=== PATIENT | male | born 1965 | race Caucasian/White ===

== ENCOUNTER 2024-06-11 09:48 | Outpatient (CLI) | payer OTHER | END 2024-06-11 23:59 | disposition critical access hospital (66) | LOC: EMS 09:48 | DX: R07.9 Chest pain, unspecified (principal) | CPT/HCPCS: A0425; A0427 ==

== ENCOUNTER 2024-06-11 10:07 | Emergency (ER) | payer OTHER ==
[2024-06-11 10:35] LABS: BASOPHILS % (AUTO) 0.9 %; EOSINOPHILS # (AUTO) 0.2 10^3/uL (0.0-0.7); EOSINOPHILS % (AUTO) 3.5 %; HCT - HEMATOCRIT 39.6 % (42.0-52.0); HGB - HEMOGLOBIN 13.8 g/dL (14.0-18.0); LYMPHOCYTES # (AUTO) 2.2 10^3/uL (1.5-3.5); LYMPHOCYTES % (AUTO) 47.1 %; MEAN CORPUSCULAR HEMOGLOBIN 30.5 pg (27.0-31.0); MEAN CORPUSCULAR HGB CONC 34.8 g/dL (32.0-36.0); MEAN CORPUSCULAR VOLUME 87.6 fL (80.0-94.0); MEAN PLATELET VOLUME 9.2 fL (7.4-11.4); MONOCYTES # (AUTO) 0.4 10^3/uL (0.0-1.0); MONOCYTES % (AUTO) 8.8 %; NEUTROPHILS # (AUTO) 1.8 10^3/uL (1.5-6.6); NEUTROPHILS % (AUTO) 39.3 %; PLT - PLATELET COUNT 157 10^3/uL (130-450); RED BLOOD COUNT 4.52 10^6/uL (4.70-6.10); RED CELL DISTRIBUTION WIDTH 13.3 % (12.0-15.0); WHITE BLOOD COUNT 4.6 x10^3/uL (4.8-10.8)
[2024-06-11 10:53] LABS: ALBUMIN 4.2 g/dL (3.2-5.5); ALBUMIN/GLOBULIN RATIO 1.7 (1.0-2.2); BILIRUBIN,TOTAL 0.8 mg/dL (0.2-1.0); CALCIUM 9.2 mg/dL (8.5-10.3); POTASSIUM 3.3 mmol/L (3.5-4.5); TOTAL PROTEIN 6.7 g/dL (6.4-8.9)
--- NOTE | 2024-06-11 10:57 | XRAY Report ---
PROCEDURE: Chest 1V INDICATIONS: Chest pain TECHNIQUE: One view of the chest was acquired. COMPARISON: None. FINDINGS: Surgical changes and devices: None. Lungs and pleura: No pleural effusions or pneumothorax. There is mild pulmonary vascular congestion. No definite focal infiltrate.. Mediastinum: Mediastinal contours appear normal. Heart size is normal. Bones and chest wall: No suspicious bony lesions. Overlying soft tissues appear unremarkable. IMPRESSION: Mild pulmonary vascular congestion. No focal infiltrate, pleural effusion or pneumothorax. Reviewed by: Dez Campos MD on 06/11/2024 10:56 AM PDT Approved by: Dez Campos MD on 06/11/2024 10:56 AM PDT Station ID: [id number]
[2024-06-11 11:06] LABS: TROPONIN I HIGH SENSITIVITY 31.3 ng/L (2.3-19.7)
[2024-06-11] MEDS: METOPROLOL TARTRATE 50 MG TABLET PO STA (13:42)
[2024-06-11] MEDS: HEPARIN 25000UNITS/500ML (D5W) 25,000 UNIT/500 ML BAG IV SCH (13:50)
--- NOTE | 2024-06-11 13:52 | ED Physician Documentation ---
PD HPI CHEST PAIN - Stated complaint Stated Complaint: CHEST PX - Chief complaint Chief Complaint: Cardiac - History obtained from History obtained from: Patient, EMS - Additional information Additional information: The patient comes to the emergency department chief complaint of an episode of chest pain that started around 9:00 this morning. He states he got up feeling fine and then was descending his stairs when he suddenly developed a severe pain in his substernal area. He states that he did not feel distinctly short of breath but that it hurts so bad that he felt as though he needed to catch his breath. The pain went on for about 20 minutes before EMS showed up at his house. He states that he was given aspirin and nitroglycerin and route and that by the time he got here to the hospital, it was more of a vague pressure. He states that he has never had anything like this before. He has a history of hypertension but states that his medications were making him "feel weird" and so he stopped them several months ago. He states actually his blood pressure has been fairly good most of the time but that occasionally he has readings in the 130s systolic, which concerns him. The patient is not known to have any hyperlipidemia. He is not a diabetic. He states he was heavily exposed to secondhand smoke as a child, but has never been a smoker himself. He states that he does not have any contact with his parents, but thinks they may have had some heart disease. However, he states they were both heavy smokers. He does not know at what age they may have been diagnosed with heart disease. He states he does not know any more specifics and whether they specifically had coronary artery disease or MIs or not. The patient denies any fatigue or decrease in exercise/exertional stamina lately. He has never experienced anything like this before. He denies any nausea or lightheadedness during the episode. He did feel sweaty. No other complaints at this time. PD PAST MEDICAL HISTORY - Past Medical History Past Medical History: Yes Cardiovascular: Hypertension Psych: Anxiety - Past Surgical History Past Surgical History: No Ortho: Other - Present Medications Home Medications: Ambulatory Orders Medication Instructions Recorded Confirmed No Known Home Medications 06/11/24 06/11/24 - Allergies Allergies/Adverse Reactions: Allergies Allergy/AdvReac Type Severity Reaction Status Date / Time No Known Drug Allergies Allergy Verified 06/11/24 10:29 - Social History Does the pt smoke?: No Smoking Status: Never smoker Does the pt drink ETOH?: Yes ETOH Use: Beer Does the pt have substance abuse?: No PD ED PE NORMAL - Vitals Vital signs reviewed: Yes - General General: Alert and oriented X 3, No acute distress, Well developed/nourished - HEENT HEENT: Atraumatic, EOMI, Moist mucous membranes - Neck Neck: Supple, no meningeal sign - Cardiac Cardiac: RRR, No murmur, Strong equal pulses - Respiratory Respiratory: No respiratory distress, Clear bilaterally - Abdomen Abdomen: Soft, Non tender, Non distended - Derm Derm: Normal color, Warm and dry, No rash - Extremities Extremities: No deformity, No edema - Neuro Neuro: Alert and oriented X 3 - Psych Psych: Normal mood, Normal affect Results - Vitals Vitals: Vital Signs - 24 hr 06/11/24 06/11/24 06/11/24 10:21 11:00 11:30 Temperature 36.2 C L Heart Rate 62 61 64 Respiratory 18 16 16 Rate Blood Pressure 112/68 112/73 135/73 H O2 Saturation 99 97 97 06/11/24 06/11/24 06/11/24 12:00 13:30 14:00 Temperature Heart Rate 61 61 62 Respiratory 16 16 26 H Rate Blood Pressure 126/75 131/73 H 148/89 H O2 Saturation 98 100 96 06/11/24 06/11/24 15:00 17:00 Temperature Heart Rate 58 L 65 Respiratory 18 17 Rate Blood Pressure 130/64 116/81 H O2 Saturation 99 96 Oxygen O2 Source Room air - EKG (time done) 1020 EKG releavant findings:: EKG personally interpreted by author of this note. Relevant findings are: Rate: Rate (enter#) (60) Rhythm: NSR [place]: Normal Intervals: Normal SC QRS: Normal Ischemia: Normal ST segments Compare to prior EKG: Old EKG unavailable Computer interpretation: Agree with computer - Labs Labs: Laboratory Tests 06/11/24 06/11/24 06/11/24 10:19 10:19 12:35 WBC 4.6 L RBC 4.52 L Hgb 13.8 L Hct 39.6 L MCV 87.6 MCH 30.5 MCHC 34.8 RDW 13.3 Plt Count 157 MPV 9.2 Neut # (Auto) 1.8 Lymph # (Auto) 2.2 [place] # (Auto) 0.4 Eos # (Auto) 0.2 Baso # (Auto) 0.0 Absolute Nucleated RBC 0.00 Nucleated RBC % 0.0 Sodium 137 Potassium 3.3 L Chloride 107 Carbon Dioxide 19 L Anion Gap 11.0 BUN 16 Creatinine 1.0 Estimated GFR (MDRD) 77 L Glucose 108 H Calcium 9.2 Total Bilirubin 0.8 AST 17 ALT 15 Alkaline Phosphatase 62 Troponin I High Sens 31.3 H* 865.4 H* Total Protein 6.7 Albumin 4.2 Globulin 2.5 Albumin/Globulin Ratio 1.7 Lipase 24 PD Medical Decision Making - ED course Complexity details: reviewed results, re-evaluated patient, considered differential, d/w patient, d/w family ED course: The patient was experiencing slight "awareness" of his chest but no discomfort More pain at the time of my evaluation. He had received aspirin and nitroglycerin and route already. He was worked up with EKG which was completely normal, as well as laboratory studies including serial high-sensitivity troponin. His initial troponin was 31 which was mildly elevated, but his 2-hour troponin was 865. The patient was started on heparin per protocol, and metoprolol. I discussed the findings with the patient and his family and that the plan would be to transfer the patient to a higher level of care at a facility with cardiology availability and biological lab technician if needed. I discussed the case with Dr. Dial of cardiology at [facility]. He stated that he felt the patient should be transferred. [facility] did state that they had some beds opening up and could accept the patient pending conversation with hospitalist, once beds were available. The case was discussed with Dr. Bridges, the on-call hospitalist at [facility] and he has accepted the patient in transfer. The patient is aware that he will be transferred and he and his family are in agreement with this plan. The patient has been stable throughout his stay in the emergency department no further complaints of chest pain or other discomforts. Departure - Departure Disposition: 02 Transfer Acute Care Hosp Clinical Impression: NSTEMI (non-ST elevated myocardial infarction) Condition: Serious Forms: PCP List
[2024-06-11] MEDS: CLOPIDOGREL 300 MG TABLET PO STA (13:55)
[2024-06-11 20:56] VITALS: BP 125/74; O2SAT 95
== END 2024-06-11 20:57 | disposition short-term general hospital (02) ==
LOC: ED 10:07
DX: I21.4 Non-ST elevation (NSTEMI) myocardial infarction (principal); I10 Essential (primary) hypertension
CPT/HCPCS: 36415; 71045; 80053; 83690; 84484; 85025; 85730; 93005; 96374; 96376; 99285; A9270

== ENCOUNTER 2024-07-12 08:04 | Outpatient (CLI) | payer OTHER ==
[2024-07-12 12:26] LABS: BASOPHILS % (AUTO) 0.7 %; EOSINOPHILS # (AUTO) 0.4 10^3/uL (0.0-0.7); EOSINOPHILS % (AUTO) 7.4 %; HCT - HEMATOCRIT 43.9 % (42.0-52.0); HGB - HEMOGLOBIN 14.7 g/dL (14.0-18.0); LYMPHOCYTES # (AUTO) 1.3 10^3/uL (1.5-3.5); LYMPHOCYTES % (AUTO) 24.6 %; MEAN CORPUSCULAR HEMOGLOBIN 29.9 pg (27.0-31.0); MEAN CORPUSCULAR HGB CONC 33.5 g/dL (32.0-36.0); MEAN CORPUSCULAR VOLUME 89.4 fL (80.0-94.0); MEAN PLATELET VOLUME 9.4 fL (7.4-11.4); MONOCYTES # (AUTO) 0.5 10^3/uL (0.0-1.0); MONOCYTES % (AUTO) 9.8 %; NEUTROPHILS # (AUTO) 3.1 10^3/uL (1.5-6.6); NEUTROPHILS % (AUTO) 57.3 %; PLT - PLATELET COUNT 190 10^3/uL (130-450); RED BLOOD COUNT 4.91 10^6/uL (4.70-6.10); RED CELL DISTRIBUTION WIDTH 12.8 % (12.0-15.0); WHITE BLOOD COUNT 5.4 x10^3/uL (4.8-10.8)
[2024-07-12 13:15] LABS: CHOL/HDL RATIO 3.4 (<5.0); CHOLESTEROL 133 mg/dL; HDL CHOLESTEROL 39 mg/dL; LDL CHOLESTEROL,CALCULATED 47 mg/dL; LDL/HDL RATIO 1.2 (<3.6); TRIGLYCERIDES 233 mg/dL; VLDL CHOLESTEROL 47 mg/dL
[2024-07-12 13:38] LABS: ALBUMIN 4.2 g/dL (3.2-5.5); ALBUMIN/GLOBULIN RATIO 1.6 (1.0-2.2); BILIRUBIN,TOTAL 1.5 mg/dL (0.2-1.0); CALCIUM 9.4 mg/dL (8.5-10.3); CREATININE 1.1 mg/dL (0.6-1.3); TOTAL PROTEIN 6.9 g/dL (6.4-8.9)
[2024-07-12 14:07] LABS: THYROID STIMULATING HORMONE 0.99 uIU/mL (0.34-5.60)
== END 2024-07-12 08:05 | disposition home or self-care (01) ==
LOC: LAB.N 08:04
PROVIDERS: ATTEND Nurse Practitioner Family
DX: R06.09 Other forms of dyspnea (principal); I21.3 ST elevation (STEMI) myocardial infarction of unspecified site; R53.83 Other fatigue
CPT/HCPCS: 36415; 80053; 80061; 83721; 84443; 85025